=== PATIENT | female | born 1955 | race Caucasian/White ===

== ENCOUNTER 2017-03-21 05:37 | Day surgery (SDC) | payer OTHER ==
[~2017-03-21] VITALS: Ht 167.6 cm; Wt 62.1 kg
[~2017-03-21 05:37] MED LIST: IBUP200T77 PO; INSU100C SQ; INSU3INS2 SQ; OMEP20CA9 PO
[2017-03-21] MEDS ORDERED: ONDANSETRON PF 4 MG/2 ML VIAL. IV PRN (07:00)
[2017-03-21] MEDS ORDERED: LIDOCAINE 1% PF 2 ML VIAL. ID PRN (07:00)
[2017-03-21] MEDS ORDERED: IV RINGERS,LACTATED 1000ML 1,000 ML IV SCH (07:00)
[2017-03-21] MEDS ORDERED: HYDROmorphone 2 MG/ML VIAL IV PRN (07:00)
[2017-03-21] MEDS ORDERED: MORPHINE SULFATE 2 MG/ML DISP.SYRIN. IV PRN (07:00)
[2017-03-21] MEDS ORDERED: PROCHLORPERAZINE 10 MG/2 ML VIAL. IV PRN (07:00)
[2017-03-21] MEDS ORDERED: fentaNYL PF VIAL 100 MCG/2 ML VIAL IV PRN (07:00)
[2017-03-21] MEDS ORDERED: fentaNYL PF VIAL 100 MCG/2 ML VIAL ONE ×2 (07:15→08:39)
[2017-03-21] MEDS ORDERED: LIDOCAINE 1% PF 30 ML VIAL. ONE (07:17)
[2017-03-21] MEDS ORDERED: LIDOCAINE 1% 20 ML VIAL. ONE (07:21)
[2017-03-21] MEDS ORDERED: BUPIVACAINE MPF 0.5% 30 ML VIAL. ONE (07:21)
--- NOTE | 2017-03-21 07:35 | DISCH ---
DISCHARGE INSTRUCTIONS Condition on Discharge Condition on Discharge: Stable Activity After Discharge Activity Instructions for Disc: Other, see below Other activity instructions: wiggle fingers Bathing Instructions: Shower-keep dressing dry Lifting Instructions after Dis: No heavy lifting, No pulling or pushing Weight Bearing Status after Di: As tolerated Diet after Discharge Diet after Discharge: Regular Wound Incision Care Wound/Incision Care: Ice to area for comfort, Keep wound/cast CDI, Keep wound elevated, Change dressing Other wound/incision instructi: ok to change dressing after 2-3 days Contacting the DRRaymond after DC Call your doctor for: Concerns you may have Follow-Up Follow up with: [place] in 2wks Treatment/Equipment after DC Adaptive Equipment Issued: None GIL BAILEY II, MD Mar 21, 2017 07:35
[2017-03-21] MEDS ORDERED: ONDANSETRON PF 4 MG/2 ML VIAL. ONE (07:58)
[2017-03-21] MEDS ORDERED: DEXAMETHASONE SOD PHOS 20 MG/5 ML VIAL. ONE (07:58)
[2017-03-21] MEDS ORDERED: LIDOCAINE 2% PF Vial for OR 5 ML VIAL. ONE (07:58)
[2017-03-21] MEDS ORDERED: PROPOFOL 20 ML IV ONE (07:58)
--- NOTE | 2017-03-21 08:26 | PDOC4 ---
Operative Note Operative Note Date of surgery: 03/21/2017 Surgeon: Henri Bailey Preoperative diagnosis: Right trigger thumb Postoperative diagnosis: Same Procedure performed: Open right trigger thumb release Tourniquet time 13 minutes Blood loss: 5 mL next Complications: None Findings: Patient had a thickened nodule in her flexor tendon Anesthesia Gen. Reason for procedure: Patient is a very pleasant 61-year-old female with painful catching and some locking lately that was interfering with her ability to use her thumb. Given the locking that was occurring we discussed conservative therapy versus surgical intervention. We did try one corticosteroid injection into the flexor sheath which gave her very temporary relief from her pain. Because of this, we discussed proceeding with operative intervention after the risks, benefits, and alternatives were discussed with her she wished to proceed. Description of procedure patient was greeted in the preoperative area by myself for the correct extremity was marked and verified. She was taken back to the operative suite and her antibiotics were started and row. Once in the OR she was transferred gently supine to the OR table and secured to the bed with all pressure points padded. The arm board was attached to the bed. She underwent successful induction of a general anesthetic. We then proceeded to apply nonsterile tourniquet to her right upper arm. We then prepped and draped the right upper extremity in her usual sterile fashion and conducted our standard preoperative timeout. After this, I palpated for the nodule and made a transverse incision at the base of her thumb and dissected subcutaneous tissue with tenotomies. A couple bleeders at the skin edge were cauterized with bipolar cautery. I spread down to the flexor sheath and identified the digital nerve and carefully mobilize this and protected it. I continued until I identified the A1 se and then used a scalpel to release this. I used the tip my tenotomies and direct visualization to ensure that accomplished a complete release. I then irrigated out the operative field with sterile saline and closed skin with simple interrupted 3-0 nylon. She tolerated surgery well. No complications. At the conclusion of the surgery she was awakened from anesthesia and transferred gently supine to the hospital bed. Prior to this, a sterile dressing was applied. All counts were correct 2 prior to accomplishing wound closure. No complications. She was taken to the PACU in a stable and x- ray condition. Postoperative plan is to encourage active range of motion in her digits. She will avoid lifting anything heavy. She will see me back in 2 weeks, sooner should a problem arise. HENRI BAILEY II, MD Mar 21, 2017 08:26
[2017-03-21] MEDS: fentaNYL PF VIAL 100 MCG/2 ML VIAL IV PRN ×2 (08:44→08:51)
[2017-03-21] MEDS ORDERED: HYDR-971 PO (08:46)
[2017-03-21] MEDS ORDERED: DOCU-109 PO (08:46)
[2017-03-21] MEDS ORDERED: ONDA4TAB10 SL (08:47)
[2017-03-21] MEDS ORDERED: HYDROcodone/APAP 5/325MG 1 TAB TABLET PO ONE (09:00)
[2017-03-21 09:55] VITALS: BP 123/70
== END 2017-03-21 10:13 | disposition home or self-care (01) ==
LOC: SURG 05:37
PROVIDERS: ATTEND Orthopaedic Surgery Sports Medicine
DX: M65.311 Trigger thumb, right thumb (principal); Z65.2 Problems related to release from prison; I10 Essential (primary) hypertension; J45.909 Unspecified asthma, uncomplicated; K21.9 Gastro-esophageal reflux disease without esophagitis; E11.9 Type 2 diabetes mellitus without complications; Z98.890 Other specified postprocedural states; Z90.721 Acquired absence of ovaries, unilateral; Z87.440 Personal history of urinary (tract) infections; Z87.891 Personal history of nicotine dependence; Z90.49 Acquired absence of other specified parts of digestive tract
CPT/HCPCS: 26055; 82962; J0690; J1100; J2405; J2704; J3010; J3490; J2001

== ENCOUNTER 2021-04-08 12:49 | Day surgery (SDC) | payer MEDICARE, OTHER ==
[~2021-04-08] VITALS: Ht 165.1 cm; Wt 70.4 kg
[~2021-04-08 12:49] MED LIST changes: +ALBU2.5V8 INH; +BUPIVACAINE-EPI 0.25% 30 ML VIAL KIT. ONE; +CHOL500050 PO; +DOCU-109 PO; +DULA3PEN SQ; +EZET10TA20 PO; +HYDR-3164 PO; +HYDROmorphone 2 MG/ML VIAL IVP PRN; +INSU100I32 SQ; +IV RINGERS,LACTATED 1000ML 1,000 ML IV SCH; +LEVO50TA5 PO; +LISI10TA16 PO; +MORPHINE SULFATE 2 MG/ML INJ. IVP PRN; +OMEP20CA16 PO; -OMEP20CA9 PO; +ONDA4TAB10 SL; +PROCHLORPERAZINE 10 MG/2 ML VIAL. IVP PRN; +ceFAZolin SODIUM IV Push 1 GM VIAL. IVP PRN; +fentaNYL PF VIAL 100 MCG/2 ML VIAL IVP PRN
[2021-04-08] MEDS ORDERED: ROPIVacaine 0.5% PF 20 ML VIAL. ONE (13:15)
[2021-04-08] MEDS ORDERED: MIDAZOLAM HCL/PF 2 MG/2 ML VIAL. ONE (13:16)
[2021-04-08] MEDS ORDERED: FAMOTIDINE 20 MG/2 ML VIAL ONE (13:17)
[2021-04-08 13:29] VITALS: BP 198/88
[2021-04-08] MEDS ORDERED: INSULIN LISPRO 100 UNIT/ML 3ML VIAL for OP,RR ONLY. SQ PRN (13:45)
[2021-04-08] MEDS ORDERED: SEVOFLURANE 16 TO 30 MINUTES. IH ONE (13:48)
[2021-04-08] MEDS ORDERED: PROPOFOL 10 MG/ML (20ML) VIAL. IV ONE (13:48)
[2021-04-08] MEDS ORDERED: SEVOFLURANE 61 TO 120 MINUTES. IH ONE (13:48)
[2021-04-08] MEDS ORDERED: fentaNYL PF VIAL 100 MCG/2 ML VIAL ONE (13:49)
[2021-04-08] MEDS ORDERED: HYDR-2761 PO (13:58)
[2021-04-08] MEDS ORDERED: PHENYLEPHRINE 10 MG/ML VIAL. ONE (14:47)
[2021-04-08] MEDS ORDERED: ePHEDrine PF IN SALINE 50 MG/10 ML SYRINGE. IV ONE (14:47)
[2021-04-08] MEDS ORDERED: PHENYLEPHRINE in 0.9% NACL PF 1 MG/10 ML SYRINGE. IV ONE (14:47)
--- NOTE | 2021-04-08 15:00 | PDOC4 ---
OPERATIVE NOTE Date: Date: Apr 08, 2021 Pre-Op Diagnosis: Impingement AC arthrosis probable rotator cuff tear adhesive capsulitis right shoulder Post-Op Diagnosis: Same Procedure Performed: Right shoulder arthroscopy after manipulation under anesthesia subacromial decompression arthroscopically with a distal clavicle resection bursectomy release CA ligament Surgeon: Christopher Anesthesia Type: General Blood Loss: 20 cc Specimans Obtained: None Findings: See dictation Complications: None FADUMO SHAW Jr. DO Apr 08, 2021 14:59
--- NOTE | 2021-04-08 15:01 | DISCH ---
DISCHARGE INSTRUCTIONS Condition on Discharge Condition on Discharge: Stable Activity After Discharge Activity Instructions for Disc: Resume previous activity, Avoid exertion, O ther, see below Bathing Instructions: Shower-keep dressing dry Lifting Instructions after Dis: No heavy lifting, No pulling or pushing Driving Instructions after Dis: Do not drive today Weight Bearing Status after Di: As tolerated Diet after Discharge Diet after Discharge: Regular Wound Incision Care Wound/Incision Care: Ice to area for comfort, Keep wound/cast CDI, Keep wound elevated, Change dressing Other wound/incision instructi: May change dressings postoperative day #3 to waterproof Band-Aids Contacting the DRRaymond after DC Call your doctor for: Concerns you may have Follow-Up Follow up with: 10 to 14 days Treatment/Equipment after DC Adaptive Equipment Issued: None FADUMO SHAW Jr. DO Apr 08, 2021 15:01
[2021-04-08] MEDS ORDERED: HYDR-2763 PO (15:30)
[2021-04-08 16:30] VITALS: BP 159/66
[2021-04-08] MEDS ORDERED: ALBUTEROL SULFATE 2.5 MG/3 ML NEBU. NEB ONE (16:30)
--- NOTE | 2021-04-09 07:32 | OP ---
DATE OF SURGERY: 04/08/2021 PREOPERATIVE DIAGNOSES: Impingement, acromioclavicular arthrosis, adhesive capsulitis, probable rotator cuff tear, right shoulder. POSTOPERATIVE DIAGNOSES: Impingement, acromioclavicular arthrosis, adhesive capsulitis, right shoulder. PROCEDURES: Manipulation under anesthesia followed by right shoulder arthroscopy, subacromial decompression, distal clavicle resection, bursectomy. SURGEON: James White Jr, DO TIPPING MACHINE OPERATOR AUTOMATIC: Navid King. ANESTHESIA: General. COMPLICATIONS: None. ESTIMATED BLOOD LOSS: 20 mL DESCRIPTION OF PROCEDURE: The patient was taken to the operative suite, given a general anesthetic, placed in a beach chair position. Bony prominences were well padded at this point. Right shoulder was prepped and draped in a sterile fashion. Manipulation of the shoulder, took it from abduction of 90 up to 130, forward elevation to 105, up to 150. External and internal rotation were improved by 10 degrees each up to 55 and 65 degrees respectively. Then, the standard posterior portal was established. The glenohumeral joint was visualized and after establishing an anterolateral portal. The visualization and clearing of the blood in scar tissue on the inside portion of the joint revealed there to be some lesions that were significant large scar, which was removed. The labral tissue, however, was intact. The chondral surfaces of both the glenoid and the humeral side of the joint were completely intact. The biceps was completely intact. The undersurface of the rotator cuff had some fraying approximately 25% at the attachment only distally, but no significant damage was noted to the undersurface of the rotator cuff at this point. After realizing that there was a Jeanne complex, also noted and this is the patient's variant. The scope was then taken to the subacromial region where a bursectomy was completed. Release of more scar tissue was noted at this point, which is quite significant amount of scar. However, the rotator cuff itself appeared to be completely intact. Subacromial decompression was performed through the lateral portal and then the anterior portal was placed in the area of the AC joint, so that the bur could also remove osteophytes from the AC joint itself as well as the undersurface of the clavicle and actually a portion of the distal clavicle. This was resected. Therefore, this was then thoroughly irrigated and suctioned dry. All instruments were then removed. Wounds were reapproximated. Sterile dressing was applied. The patient was then taken from the operative bed to the postoperative bed, taken to the ____ in stable condition. ANNIE DR: Alina TID: [id number]
== END 2021-04-08 17:18 | disposition home or self-care (01) ==
LOC: SURG 12:49
PROVIDERS: ATTEND Orthopaedic Surgery
DX: M19.011 Primary osteoarthritis, right shoulder (principal); M75.01 Adhesive capsulitis of right shoulder; I10 Essential (primary) hypertension; E78.00 Pure hypercholesterolemia, unspecified; E11.9 Type 2 diabetes mellitus without complications; J45.909 Unspecified asthma, uncomplicated; K21.9 Gastro-esophageal reflux disease without esophagitis; Z85.3 Personal history of malignant neoplasm of breast; Z87.891 Personal history of nicotine dependence; Z79.4 Long term (current) use of insulin; Z79.899 Other long term (current) drug therapy; Z98.890 Other specified postprocedural states; Z88.8 Allergy status to other drugs, medicaments and biological substances
CPT/HCPCS: 29824; 29826; 82962; 94640; A4565; A4928; A4930; J0690; J2250; J2370; J2704; J2795; J3010; J3490; J7613; A4452